=== PATIENT | male | born 1985 | race Caucasian/White ===

== ENCOUNTER 2018-12-03 21:35 | Observation (INO) ==
[2018-12-04] MEDS ORDERED: Naloxone 0.4 MG/ML INJ IVP PRN ×2 (00:57→01:05)
[2018-12-04] MEDS ORDERED: *HR* LORazepam 2 MG/ML VIAL IVP PRN ×2 (00:58)
[2018-12-04] MEDS ORDERED: Ibuprofen 400 MG TABLET PO PRN (01:05)
[2018-12-04] MEDS ORDERED: traMADol 50 MG TABLET PO PRN (01:05)
[2018-12-04] MEDS ORDERED: Acetaminophen 325 MG TABLET PO PRN (01:05)
[2018-12-04] MEDS: Nicotine 14 MG PATCH.TD24 TD SCH ×2 (01:35→21:15)
[2018-12-04] MEDS ORDERED: Ipratropium/Albuterol Neb 3 ML IH PRN (02:58)
[2018-12-04] MEDS: *HR* LORazepam 2 MG/ML VIAL IVP PRN ×4 (07:27→21:31)
[2018-12-04 13:34] LABS: Alanine Aminotransferase 42 Units/L (7-52); Albumin 4.7 g/dL (3.5-5.7); Albumin/Globulin Ratio 1.9 (1.1-2.2); Alkaline Phosphatase 95 Units/L (34-104); Aspartate Amino Transferase 40 Units/L (13-39); BUN/Creatinine Ratio 12 (6-26); Bilirubin,Total 1.9 mg/dL (0.3-1.0); Blood Urea Nitrogen 8 mg/dL (6-20); Carbon Dioxide 28 mEq/L (23-29); Chloride 98 mEq/L (98-107); Globulin 2.5 g/dL (2.4-3.5); Glucose 101 mg/dL (70-105); Magnesium 2.2 mg/dL (1.6-2.6); Osmolality,Calculated 278 (280-300); Sodium 135 mEq/L (136-145); Total Protein 7.2 g/dL (6.4-8.9); eGFR For Non-African Americans > 60 (> 60)
[2018-12-04 13:48] LABS: Basophils # 0.1 K/mcL (0.0-0.2); Basophils % 1.3 %; Eosinophils # 0.1 K/mcL (0.0-0.6); Eosinophils % 1.3 %; Hematocrit 42.7 % (37.5-50.1); Hemoglobin 14.9 g/dL (12.9-16.9); Immature Granulocytes % 0.2 % (0-4); Lymphocytes # 1.6 K/mcL (0.6-4.6); Lymphocytes % 25.4 %; Mean Corpuscular HGB Conc 34.9 g/dL (31.6-35.5); Mean Corpuscular Hemoglobin 36.1 pg (28.0-33.3); Mean Corpuscular Volume 103.4 fL (83.0-100.0); Monocytes # 0.4 K/mcL (0.0-1.3); Monocytes % 6.9 %; Neutrophils # 4.1 K/mcL (1.6-8.9); Platelet Count 181 K/mcL (140-400); Red Blood Count 4.13 M/mcL (4.19-5.50); Red Cell Distribution Width 12.7 % (11.5-14.5); Segmented Neutrophils % 64.9 %
--- NOTE | 2018-12-04 14:19 | Internal Med Progress Note ---
Hospitalist Progress Note - Encounter Date of Encounter: 12/04/18 Time of Encounter: 11:00 - Subjective Interval History: Mr. Ashby is a 33 y/o M with no significant past medical history who has a chronic alcohol dependence and tobacco dependence patient presented to [facility] emergency room stating that yesterday morning he had a last alcohol and since then he has been having very shaky in short of breath and ill. Patient decided to quit drinking alcohol. Patient was sent our hospital for further evaluation for his alcohol detox. Today patient is alert, awake, O x 3. He denied any chest pain/shortness of breath. He did complained about mild tremors. Patient stated he is a heavy drinker. - Exam Vitals: Temp Pulse Resp BP Pulse Ox 98.3 F 86 16 150/87 97 12/04/18 11:27 12/04/18 11:27 12/04/18 11:27 12/04/18 11:27 12/04/18 11:27 Exam: Gen: Alert, awake, Oriented to time,place and person Chest: Diminished breath sounds B/L, No wheezing, No crackles, No rales Heart: S1S2+ RRR No murmurs Abd: Soft, NT, BS +, No organomegaly Ext: No edema, pulses are palpable, No calf tenderness Neuro : Benign findings Skin: No rash. - Assessment and Plan (1) Alcohol withdrawal Current Visit: No Status: Acute Assessment and Plan: Had a last alcohol y/d morning he is high risk for DT's now He is willing to quit drinking SW consulted He does not want to go to rehab Cont CIWA protocl started Librium 50mg Q6HR [place] cont banana bag (2) Tobacco dependence Current Visit: Yes Status: Acute Assessment and Plan: Counseled to quit smoking placed on nicotine patch (3) Partial loss of tooth due to caries Current Visit: No Status: Acute Assessment and Plan: pain meds cont PO Abx Augmentin (4) Alcohol dependence Current Visit: Yes Status: Acute - Time Spent with Patient Total time spent is greater than 50% in coordination of care (as documented) at patient's floor/unit and/or counseling patient: Internal Medicine: Result - Labs CBC & Chem 7: 12/04/18 13:01 12/04/18 13:01 Labs: Short CBC 12/04/18 Range/Units 13:01 WBC 6.4 (4.3-11.1) K/mcL Hgb 14.9 (12.9-16.9) g/dL Hct 42.7 (37.5-50.1) % Plt Count 181 (140-400) K/mcL Neutrophils # 4.1 (1.6-8.9) K/mcL BMP 12/04/18 13:01 Sodium 135 L Potassium 4.0 Chloride 98 Carbon Dioxide 28 BUN 8 Creatinine 0.66 L Glucose 101 Calcium 10.0 Liver Function 12/04/18 Range/Units 13:01 Total Bilirubin 1.9 H (0.3-1.0) mg/dL AST 40 H (13-39) Units/L ALT 42 (7-52) Units/L Alkaline Phosphatase 95 (34-104) Units/L Albumin 4.7 (3.5-5.7) g/dL Consult Discharge Plan - Plan Referrals: NONE,PCP [Primary Care Provider] - (1) Alcohol withdrawal Qualifiers: Complication of substance-induced condition: uncomplicated Qualified Code(s): F10.230 - Alcohol dependence with withdrawal, uncomplicated
[2018-12-04] MEDS ORDERED: Thiamine (B-1) 100 MG, Folic Acid 1 MG, MVI, adult with vitamin K 10 ML in 0.9 % Sodi... IVPB SCH (18:00)
--- NOTE | 2018-12-04 18:43 | Internal Med History&Physical ---
Date of Encounter: 12/04/18 Time of Encounter: 03:00 Internal Medicine - H&P: HPI Chief complaint: Alcohol withdrawal History of present illness: Mr. Ashby is a 33 year old male with past medical history of alcohol abuse and anxiety disorder who originally presented to [facility] for evaluation of alcohol withdrawal and what he describes as a panic attack. Patient states that he was sitting in his apartment when he suddenly felt short of breath, was hyperventilating and could not catch his breath. Patient states that he he was trying to discontinue alcohol use on his own prior to this symptom onset. He has not had any substantial alcohol since 8:00 this morning. Tonight he is feeling very shaky short of breath and ill. He states his normal alcohol intake is approximately case of beer or 3- 8% tall boys. He has never had any alcohol draw treatment in the past. Patient denies any history of seizures. He denies any other drug use. He states he is currently getting treatment for a left lower mandibular abscess tooth with amoxicillin states is not improved after being on amoxicillin. Currently feels much better after Ativan. Denies any f ever, chills, nausea, vomiting, abdominal pain, chest pain or shortness of breath. Past Med Surg Social Fam HX - Past Medical History Medical history: no medical history Psychiatric history: anxiety - Social History Smoking Status: Current every day smoker Smokeless Tobacco Status: No Alcohol use: none Drug use: none Internal Medicine - H&P: Meds No Known Home Drugs 12/03/18 [History] Allergy/AdvReac Type Severity Reaction Status Date / Time No Known Allergies Allergy Verified 12/03/18 19:23 All Systems PM: A 10-system review of systems was performed and is negative for pertinent findings except as documented above in the HPI. - Constitutional Constitutional: no chills, no fever(s), no night sweats - EENT Eyes: no change in vision, no discharge, no pain, no photophobia Ears: no ear discharge, no ear pain, no tinnitus Nose, mouth and throat: no dysphagia, no nasal discharge, no neck pain, no sore throat - Cardiovascular Cardiovascular ROS IM: no chest pain, no diaphoresis, no dyspnea, no lightheadedness, no palpitations, no syncope - Respiratory Respiratory: no cough, no dyspnea, no wheezing, no excessive phlegm production - Gastrointestinal Gastrointestinal: no abdominal pain, no diarrhea, no hematemesis, no hematochezia, no melena, no nausea, no vomiting - Musculoskeletal Musculoskeletal ROS IM: no numbness, no tingling - Integumentary Integumentary IM: no rash, no unusual bruising - Neurological Neurological ROS: no confusion, no convulsions, no focal weakness, no numbness, no tingling, no tremor(s) - Hematologic/Lymphatic Hematologic/Lymphatic: no easy bruising - Constitutional Vitals: Temp Pulse Resp BP Pulse Ox 98.3 F 88 16 140/85 98 12/04/18 16:06 12/04/18 16:06 12/04/18 16:06 12/04/18 16:06 12/04/18 16:06 Exam: General: Alert and oriented 3 lying in bed in no acute distress Skin:Normal color, no rash, no lesions. HEENT:EOM, pupils equal, round and reactive. Cardiovascular:Normal S1 & S2, no rubs, murmurs or gallops. No JVD. Pulse regular. Lungs: Faint expiratory wheezing noted bilaterally Abdomen:Soft, non-tender, no rigidity. Extremities:No deformity, no edema or tenderness, no joint swelling or clubbing. Neurological:Normal cognition and motor skills. Pulses:Carotid and radial pulses normal +2. Rest of the physical exam is non contributory Internal Med - H&P Results - Labs CBC & Chem 7: 12/04/18 13:01 12/04/18 13:01 Labs: Short CBC 12/04/18 Range/Units 13:01 WBC 6.4 (4.3-11.1) K/mcL Hgb 14.9 (12.9-16.9) g/dL Hct 42.7 (37.5-50.1) % Plt Count 181 (140-400) K/mcL Neutrophils # 4.1 (1.6-8.9) K/mcL BMP 12/04/18 13:01 Sodium 135 L Potassium 4.0 Chloride 98 Carbon Dioxide 28 BUN 8 Creatinine 0.66 L Glucose 101 Calcium 10.0 Liver Function 12/04/18 Range/Units 13:01 Total Bilirubin 1.9 H (0.3-1.0) mg/dL AST 40 H (13-39) Units/L ALT 42 (7-52) Units/L Alkaline Phosphatase 95 (34-104) Units/L Albumin 4.7 (3.5-5.7) g/dL - Assessment and plan (1) Alcohol withdrawal Current Visit: No Status: Acute Assessment and plan: Patient currently does not exhibit any signs of alcohol withdrawal. Patient expresses desire to quit and is willing to speak with social worker psychiatric. -Continue with [facility] protocol -Multivitamin -We will give one bag banana bag -ancillary services manager consult Qualifiers: Complication of substance-induced condition: uncomplicated Qualified Code(s): F10.230 - Alcohol dependence with withdrawal, uncomplicated (2) Partial loss of tooth due to caries Current Visit: No Status: Acute Assessment and plan: Continue with amoxicillin/clavulanic acid (3) Tobacco dependence Current Visit: Yes Status: Acute Assessment and plan: NicoDerm patch (4) Alcohol dependence Current Visit: Yes Status: Acute Qualifiers: Qualified Code(s): F10.20 - Alcohol dependence, uncomplicated - Time Spent With Patient Total time spent is greater than 50% in coordination of care (as documented) at patient's floor/unit and/or counseling patient:
[2018-12-05] MEDS ORDERED: *HR* LORazepam 2 MG/ML VIAL IVP ONE (01:44)
[2018-12-05 05:55] LABS: Basophils # 0.1 K/mcL (0.0-0.2); Basophils % 1.7 %; Eosinophils # 0.2 K/mcL (0.0-0.6); Eosinophils % 2.9 %; Hematocrit 40.3 % (37.5-50.1); Hemoglobin 13.7 g/dL (12.9-16.9); Immature Granulocytes % 0.4 % (0-4); Lymphocytes # 1.9 K/mcL (0.6-4.6); Lymphocytes % 36.5 %; Mean Corpuscular Volume 105.8 fL (83.0-100.0); Mean Platelet Volume 9.2 fL (9.4-12.4); Monocytes # 0.4 K/mcL (0.0-1.3); Monocytes % 7.4 %; Neutrophils # 2.7 K/mcL (1.6-8.9); Platelet Count 145 K/mcL (140-400); Red Blood Count 3.81 M/mcL (4.19-5.50); Red Cell Distribution Width 12.7 % (11.5-14.5); Segmented Neutrophils % 51.1 %
[2018-12-05 06:13] LABS: Alanine Aminotransferase 33 Units/L (7-52); Albumin 4.1 g/dL (3.5-5.7); Alkaline Phosphatase 86 Units/L (34-104); Aspartate Amino Transferase 33 Units/L (13-39); BUN/Creatinine Ratio 11 (6-26); Blood Urea Nitrogen 7 mg/dL (6-20); Calcium 9.3 mg/dL (8.6-10.3); Carbon Dioxide 25 mEq/L (23-29); Chloride 104 mEq/L (98-107); Globulin 2.1 g/dL (2.4-3.5); Glucose 83 mg/dL (70-105); Osmolality,Calculated 279 (280-300); Sodium 136 mEq/L (136-145); Total Protein 6.2 g/dL (6.4-8.9); eGFR For Non-African Americans > 60 (> 60)
[2018-12-05 07:40] VITALS: BP 133/88
--- NOTE | 2018-12-05 10:29 | Discharge Summary ---
<Roe Lawson - Last Filed: 12/05/18 10:21> Date of Encounter: 12/05/18 Time of Encounter: 09:10 - Discharge Diagnosis (1) Alcohol withdrawal Priority: Primary Status: Acute Qualifiers: Complication of substance-induced condition: uncomplicated Qualified Code(s): F10.230 - Alcohol dependence with withdrawal, uncomplicated (2) Alcohol dependence Priority: Secondary Status: Acute Qualifiers: Qualified Code(s): F10.20 - Alcohol dependence, uncomplicated (3) Tobacco dependence Priority: Secondary Status: Acute (4) Partial loss of tooth due to caries Priority: Primary Status: Acute Hospital course: Mr. Ashby is a 33 year old male with a PMH of alcohol abuse and anxiety disorder who originally presented to [facility] for evaluation of alcohol withdrawal and what he describes as a panic attack. Patient states that he was sitting in his apartment when he suddenly felt short of breath, was hyperventilating and could not catch his breath. Patient stated that he he was trying to discontinue alcohol use on his own prior to this symptom onset. He had not had any substantial alcohol since 8:00 of the morning or presentation. Patient denied any history of seizures. He denied any other drug use. Was given Ativan and responding well to treatment. When seen today patient says that. He denies any nausea or vomiting. He admits to some minor numbness and tingling in his fingertips bilaterally. He denies any chest pain, shortness of breath, or abdominal pain. Denies any headache, numbness, or lightheadedness. On examination patient did not seem to display any tremors or any neurologic symptoms. He will be discharged home today with a tapering regimen of Librium. Patient will need to follow-up a PCP he needs to establish with in the next week. Warned patient that if he develops any increasing tremors, nausea, vomiting, lightheadedness, increased numbness and tingling to report immediately to the ER. - Time Spent with Patient Total time spent providing and/or coordinating discharge services: Less than 30 minutes - Discharge Medications Prescriptions: RX: Amoxicillin/Clavulanate [Augmentin] 875 mg PO BIDWM 8 Days #16 tablet Chlordiazepoxide [Librium] 25 mg PO TID 9 Days #18 capsule Home Medications: Chlordiazepoxide [Librium] 25 mg PO TID 9 Days #18 capsule 12/05/18 [Rx] RX: Amoxicillin/Clavulanate [Augmentin] 875 mg PO BIDWM 8 Days #16 tablet 12/05/18 [Rx] Allergies/Adverse Reactions: Allergy/AdvReac Type Severity Reaction Status Date / Time No Known Allergies Allergy Verified 12/03/18 19:23 Date of admission: 12/03/18 23:31 Primary care physician: PCP NONE Consults: 12/04/18 00:58 Consult to Credit Collection Associate [CONS] Routine Reason for SW Consult: Patient wishes help with alcohol cessation Discharging clinician: Roe Lawson Anticipated date of discharge: 12/05/18 - Constitutional Vitals: Temp Pulse Resp BP Pulse Ox 97.9 F 79 18 133/88 98 12/05/18 07:35 12/05/18 07:35 12/05/18 07:35 12/05/18 07:35 12/05/18 08:28 General appearance: Present: A&O X 3, no acute distress, answers questions appropriately - Respiratory Respiratory exam: Present: CTAB. Absent: accessory muscle use, rales, rhonchi, wheezes - Cardiovascular Cardiovascular exam: Present: RRR, +S1, +S2. Absent: diastolic murmur, gallop, rubs, systolic murmur - GI/Abdominal GI/Abdominal exam: Present: normal bowel sounds, soft, no peritoneal signs. Absent: distended, tenderness - Extremities Exam Extremities exam: Present: warm, radial pulses palpable and symmetrical. Absent: calf tenderness, cyanotic, pedal edema - Neurological Exam Neurological exam: Present: CN II-XII intact, oriented X3, no focal deficits. Absent: pronater drift, facial droop, speech deficit Additional comments: No tremors and extremities were noted. - Psychiatric Psychiatric exam: Present: anxious - Patient Status Disposition: Home Health Service Functional capacity at discharge: independent ambulation Overall status at discharge: patient is progressing back to baseline - Discharge Instructions Follow Up With: NONE,PCP [Primary Care Provider] - - Diet and Activity Activity: resume usual activities as tolerated Diet: advance to your usual diet <Vickie Coppola - Last Filed: 12/05/18 14:11> Date of Encounter: 12/05/18 - Discharge Diagnosis (1) Alcohol withdrawal Status: Acute Qualifiers: Complication of substance-induced condition: uncomplicated Qualified Code(s): F10.230 - Alcohol dependence with withdrawal, uncomplicated (2) Tobacco dependence Status: Acute (3) Partial loss of tooth due to caries Status: Acute (4) Alcohol dependence Status: Acute Qualifiers: Qualified Code(s): F10.20 - Alcohol dependence, uncomplicated Hospital course: Mr. Ashby is a 33 year old male - Time Spent with Patient Total time spent providing and/or coordinating discharge services: Date of admission: 12/03/18 23:31 Primary care physician: PCP NONE Consults: 12/04/18 00:58 Consult to Credit Collection Associate [CONS] Routine Reason for SW Consult: Patient wishes help with alcohol cessation - Constitutional Vitals: Temp Pulse Resp BP Pulse Ox 97.9 F 79 18 133/88 98 12/05/18 07:35 12/05/18 07:35 12/05/18 07:35 12/05/18 07:35 12/05/18 08:28 - Attending Attestation I examined this patient and my medical decision-making was reviewed with the Resident Physician Dr. Lawson. I agree with the documented findings, dis position and treatment plan as described except to the extent set forth below. Mr. Ashby is a 33 y/o M with no significant past medical history who has a chronic alcohol dependence and tobacco dependence patient presented to [facility] emergency room with feeling ill, shaky, tremors, and SOB. He had his last alcohol the morning prior to his ER visit. Patient was admitted here and placed him on cardiac rehabilitation specialist. He was started on CIWA protolol with Ativan PRN and Librium 50mg Q6hr at scheduled doses. Patient has been doing well. His tremors seems to be improved. He is tolerating oral intake well. His withdrawal symptoms seems to be improved. So will discharge him home in a stable condition with tapering dose of Librium. Also drug and alcohol counsellor the patient about quitting drinking alcohol and provided him information about rehab places. Gen: A, A, O x 3 Chest: Diminished BS b/l, No crackles, No rales Heart: S1S2+ RRR No murmurs
--- NOTE | 2018-12-05 10:45 | Physician Discharge Referral ---
Home Health/Hosp Referral Info Transfer to: Home Health Provider in Charge Post Discharge: PCP - Diagnosis (1) Alcohol withdrawal Priority: Primary Status: Acute (2) Alcohol dependence Priority: Secondary Status: Acute (3) Tobacco dependence Priority: Secondary Status: Acute (4) Partial loss of tooth due to caries Priority: Primary Status: Acute - Respiratory Orders Smoking Cessation: Smoking cessation has been advised. For more information, call the [place] Tobacco Quit Line at 9-527-ZMTE-NOW. - Services Needed Following services are medically necessary services: Med Social Work (Patient has no medical insurance. Experiencing financial hardships.) - Transfer Medications Prescriptions: Amoxicillin/Clavulanate [Augmentin] 875 mg PO BIDWM 8 Days #16 tablet Chlordiazepoxide [Librium] 25 mg PO TID 9 Days #18 capsule Home Medications: Amoxicillin/Clavulanate [Augmentin] 875 mg PO BIDWM 8 Days #16 tablet 12/05/18 [Rx] Chlordiazepoxide [Librium] 25 mg PO TID 9 Days #18 capsule 12/05/18 [Rx] Allergies/Adverse Reactions: Allergy/AdvReac Type Severity Reaction Status Date / Time No Known Allergies Allergy Verified 12/03/18 19:23 Certification: Further, I certify that my clinical findings support that this patient is homebound (i.e. absences from home require considerable and taxing effort and are for medical reasons or [facility] or infrequently or short duration when for other reasons) because: Homebound Reason: Patient requires assistance of a person or device to safely leave home (Needs help with insurance. Financial hardship. ) Attestation: My signature below is to certify that this patient is under my care and that I, or nurse practitioner, or a physician's physical laboratory assistant working with me, has a [id number] encounter with this patient.
[2018-12-07] MEDS ORDERED: Thiamine (B-1) 100 MG TABLET PO SCH (09:00)
[2018-12-07] MEDS ORDERED: Folic Acid 1 MG TABLET PO SCH (09:00)
== END 2018-12-05 10:53 | disposition home health service (06) ==
LOC: 3BNU → SUATTDRO 23:31
PROVIDERS: ADMIT Internal Medicine; ATTEND Family Medicine